=== PATIENT | female | born 1950 | race Asian ===

== ENCOUNTER 2018-01-31 07:59 | Emergency (ER) | payer MEDICARE, OTHER ==
[~2018-01-31] VITALS: Ht 160 cm; Wt 66.3 kg
[2018-01-31 08:10] VITALS: BP 0/0
== END 2018-01-31 11:22 | disposition expired ==
LOC: EMS 08:01 → EDBD 08:01 → EMS 11:22
DX: I46.9 Cardiac arrest, cause unspecified (principal)
CPT/HCPCS: 92950; 99285